=== PATIENT | female | born 1985 | race African-American/Black ===

== ENCOUNTER 2024-06-20 10:10 | Emergency (ER) | payer SELFPAY ==
[~2024-06-20] VITALS: Ht 154.9 cm; Wt 59.0 kg
[2024-06-20 10:15] VITALS: PULSE 90; RESP 16; TEMP 97.9; O2SAT 95
== END 2024-06-20 10:49 | disposition home or self-care (01) ==
LOC: FSED 10:42
DX: R05.9 Cough, unspecified (principal); B34.9 Viral infection, unspecified; R51.9 Headache, unspecified; Z11.52 Encounter for screening for COVID-19
CPT/HCPCS: 0223U; 83518; 87400; 99284